=== PATIENT | male | born 1950 | race Caucasian/White ===

== ENCOUNTER → 2016-09-06 | Outpatient (CLI) | payer OTHER, BC | LOC: MMPC 10:00 | PROVIDERS: ATTEND Orthopaedic Surgery | DX: M17.12 Unilateral primary osteoarthritis, left knee (principal); M20.41 Other hammer toe(s) (acquired), right foot; M20.5X1 Other deformities of toe(s) (acquired), right foot; T84.293D Other mechanical complication of internal fixation device of bones of foot and toes, subsequent encounter | CPT/HCPCS: 20610 ×2; 99214; G0463; J0702; J7325 ==

== ENCOUNTER → 2016-11-04 | Outpatient (CLI) | payer OTHER, BC ==
--- NOTE | 2016-11-04 10:51 | DI ---
RIGHT FOOT, 11/04/2016 9:43 AM: Clinical History: Right foot pain. Previous Exam: 01/22/2015. 3 views are submitted. The patient is status post arthrodesis of the talocalcaneal joint and the firs t and second tarsometatarsal joints. The talocalcaneal arthrodesis is solid. There is fusion between the base of the first and second metatarsal bones and between the medial cuneiform and the first meta tarsal bone. There is still a joint space visible between the medial and intermediate cuneiform bones and between the intermediate cuneiform bone and the base of the second metatarsal bone. These findin gs at this arthrodesis site are unchanged from the previous exam. Readin. The talocalcaneal arthrodesis is solid. 2. The fusion between the first tarsal and first metatarsal bone is solid. The fusion is also solid between the base of the first and second metatarsal bones. The fusions between the medial and interme diate cuneiform bones and between the base of the second metatarsal bone and the intermediate cuneifo rm bone still have lucencies indicating delayed or nonunion.
== END ==
LOC: ORTHO 09:50
PROVIDERS: ATTEND Orthopaedic Surgery
DX: M79.671 Pain in right foot (principal); Z98.1 Arthrodesis status
CPT/HCPCS: 73630

== ENCOUNTER → 2016-11-11 | Outpatient (CLI) | payer OTHER, BC ==
[2016-11-11 09:40] LABS: CHOL/HDL RATIO 3.48 RATIO (0-4.0); LDL CHOLESTEROL,CALCULATED 67.8 mg/dL
== END ==
LOC: LAB 08:46
PROVIDERS: ATTEND Internal Medicine
DX: E03.9 Hypothyroidism, unspecified (principal); E78.5 Hyperlipidemia, unspecified; E22.9 Hyperfunction of pituitary gland, unspecified
CPT/HCPCS: 36415; 82247; 82465; 82550; 82977; 83718; 84075; 84146; 84443; 84450; 84460; 84478

== ENCOUNTER → 2016-12-14 | Outpatient (CLI) | payer OTHER, BC ==
--- NOTE | 2016-12-14 18:01 | DI ---
PA /LATERAL CHEST X-RAY, 12/14/2016 3:32 PM : Clinical History: Shortness of breath. Previous Exam: 03/08/2015. There is no acute soft tissue or bony abnormality. Heart size is normal. A coronary artery stent is p resent in the LAD. Lungs are clear. Mediastinal structures are normal. There are no pulmonary nodules . Reading: Normal chest x-ray. There is a coronary artery stent in the LAD indicating coronary artery disease.
--- NOTE | 2016-12-14 19:48 | DI ---
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 Previous Exam: 01/22/2015 and 07/30/2015. Comparison is made with a CT scan of the abdomen from 05/12/[address] scan from 07/30/2015. Upright AP and lateral and upright lateral flexion and extension views are submitted. The vertebral b odies are of normal height and size. There is disc space narrowing at every lumbar level. The patient is status post L3 and L4 laminectomies. Posterior alignment is normal and there is no instability wi th flexion and extension maneuvers. Arthritic changes are present in the apophyseal joints bilaterall y between L3-4 and L5-S1. The pedicles and remaining posterior elements are normal. Both SI joints ar e normal. On the AP projection, there is a circular density lateral to the right L2 and L3 transverse processe s. This density measures approximately 10 cm in diameter. This was present on the study from and also on the study of 01/22/2015 which was a supine exam. CT scans through the kidneys on 05/12/20 and on 07/30/2015 show normal appearance of the right kidney. This patient probably has a ptotic ri ght kidney were the right kidney long axis becomes parallel with the floor when the patient is in the upright position, thus making the kidney appear spherical. Readin. Status post L3 and L4 laminectomies with chronic disc space narrowing at every lumbar level and d egenerative arthritis bilaterally in the apophyseal joints between L3-4 and L5-S1. 2. There is no instability with flexion and extension maneuvers. 3. There is a presumed ptotic right kidney that accounts for the spherical 10 cm soft tissue mass la teral to the right L2 and L3 transverse processes.
== END ==
LOC: MOB RAD 15:37
PROVIDERS: ATTEND Physician Assistant
DX: M47.26 Other spondylosis with radiculopathy, lumbar region (principal); R06.02 Shortness of breath; M48.06 Spinal stenosis, lumbar region; I25.10 Atherosclerotic heart disease of native coronary artery without angina pectoris; Z95.818 Presence of other cardiac implants and grafts
CPT/HCPCS: 71020; 72110

== ENCOUNTER → 2016-12-17 | Outpatient (CLI) | payer OTHER, BC ==
--- NOTE | 2016-12-17 09:30 | DI ---
BILATERAL RENAL ULTRASOUND, 12/17/2016 8:48 AM: Clinical History: Flank pain. Previous Exam: None at this facility. Scans are performed through both kidneys in multiple projections. The right kidney measures 125 mm, a nd the left kidney measures 120 mm. There is a small 10-12 mm cyst in the left mid zone renal cortex but no solid lesion is seen. There is no solid or cystic mass in the right kidney. There is no hydron ephrosis or hydroureter. Perfusion to both kidneys is symmetric and normal. The bladder is virtually empty. Bilateral ureteral jets are visualized. Reading: Normal bilateral renal ultrasound. The bladder is virtually empty.
== END ==
LOC: US 08:35
PROVIDERS: ATTEND Physician Assistant
DX: R10.84 Generalized abdominal pain (principal)
CPT/HCPCS: 76770

== ENCOUNTER → 2016-12-17 | Outpatient (CLI) | payer OTHER, BC ==
--- NOTE | 2016-12-17 20:30 | DI ---
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 Previous Exam: 01/14/2010. Technique: Sagittal and axial T2 weighted; sagittal T1 weighted and T2 STIR; and axial PD. The vertebral bodies are of normal height and size. The patient is status post L3 and L4 laminectomie s. There is severe disc space narrowing at L2-3 and L3-4. The remaining lumbar disc spaces are of nor mal height. All lumbar disc spaces show desiccation change. The cord terminates at T12 and the conus medullaris is normal. The T11-12 through L1-2 disc spaces are normal. L2-3 has a very mild circumfere ntially bulging but not herniated disc without canal or neural foraminal stenosis. Hypertrophic degen erative changes are present in both apophyseal joints. L3-4 has a circumferentially bulging but not h erniated disc. There is no canal or significant neural foraminal stenosis. L4-5 has a circumferential ly bulging but not herniated disc with marked hypertrophic changes of the apophyseal joints and the l igamentum flavum. The cross-sectional area of the canal is at the lowest limits of normal. There is r ight neural foraminal stenosis. There is no significant left neural foraminal stenosis. L5-S1 has a m ild circumferentially bulging but not herniated disc without canal or neural foraminal stenosis. Readin. Status post L3 and L4 laminectomies. There is a bulging but not herniated disc with marked hypert rophic changes of the apophyseal joints and ligamentum flavum at L4-5. The cross-sectional area of th e canal at this level is at the lowest limits of normal and there is right neural foraminal stenosis without left neural foraminal stenosis. 2. L2-3, L3-4, and L5-S1 have bulging but not herniated discs without canal or neural foraminal sten osis. 3. The T11-12 through L1-2 disc spaces are normal.
== END ==
LOC: MRI 08:38
PROVIDERS: ATTEND Physician Assistant
DX: M47.26 Other spondylosis with radiculopathy, lumbar region (principal); M47.816 Spondylosis without myelopathy or radiculopathy, lumbar region; M47.817 Spondylosis without myelopathy or radiculopathy, lumbosacral region
CPT/HCPCS: 72148

== ENCOUNTER → 2016-12-27 | Outpatient (CLI) | payer OTHER, BC | LOC: MMPC 11:11 | PROVIDERS: ATTEND Internal Medicine | DX: M48.06 Spinal stenosis, lumbar region (principal); M20.5X1 Other deformities of toe(s) (acquired), right foot; Z95.5 Presence of coronary angioplasty implant and graft | CPT/HCPCS: 99214; G0463 ==

== ENCOUNTER 2017-01-06 09:07 | Day surgery (SDC) | payer OTHER, BC ==
[~2017-01-06 09:07] MED LIST: BUPivacaine Inj 0.25% PF - 10ml vial IV ONE; Iopamidol Inj 61% 50 ML VIAL IV ONE; TRIAMCINOLONE ACETONIDE 40 MG/1 ML IM ONE
[2017-01-06 10:07] VITALS: RESP 18
--- NOTE | 2017-01-06 10:45 | GEN.OPNOTE ---
Transforaminal CONCHA Procedure: Transforaminal Epidural Steriod Injection Procedure Code - Neurosurgery: 35313 : Lumbar Transforaminal Epidural Surgeon: Mitch Noonan -: Consent: Rationale for procedure, nature of procedure, possible risks and benefits were discussed with the patient. Risks including allergic reaction to medications, known effects of steroid medications including transient elevation in blood sugar with aggravation of pre-existing diabetes and remote risk of aseptic necrosis of the hip. Pain at the injection site, inadvertent dural puncture with resultant in CSF leak and headache possibly requiring further treatment. Infection or bleeding with potential risk of neurologic injury with weakness, paralysis or were all reviewed with the patient who wished to proceed. Anesthesia, sedation: No intravenous access or sedation was used. Physiologic monitoring of pulse and oxygen saturation was utilized. Procedure: The patient was placed prone on the operating room table, prepped with Chloraprep and sterilely draped. The skin was anesthetized with 1% Buffered Xylocaine. Under fluoroscopic control a 22-gauge Touhy needle was advanced into the area of the Kambin's triangle at the L4 level. Imaging confirmation of needle placement in the posterior, inferior and lateral quadrant of the foramen was obtained. Omnipaque was injected under real-time fluoroscopy demonstrating and epidurogram. Following this 2 ml of a mixture of kenalog 40mg/ml and 1% ropivacaine was injected. AP and lateral images of the final needle placement was obtained. The needle was removed and the patient returned to the post procedure recovery room where they were monitored for any side effects. Pain assessment: Preprocedure pain []/10, post procedure pain []/10. Discharge instructions: Patient was given a pain log to be filled out and returned. A delayed response to the steroids of 2-5 days was discussed. Dx; Lumbar Degenerative Disc Disease
[2017-01-06 10:51] VITALS: TEMP 97.7
== END 2017-01-06 10:48 | disposition home or self-care (01) ==
LOC: SDSC 09:07
PROVIDERS: ATTEND Pain Medicine Interventional Pain Medicine
DX: M51.36 Other intervertebral disc degeneration, lumbar region (principal)
CPT/HCPCS: 76000

== ENCOUNTER → 2017-01-21 | Outpatient (CLI) | payer OTHER, BC ==
--- NOTE | 2017-01-25 05:35 | DI ---
MRI THORACIC SPINE SCAN, 01/21/2017 8:50 AM: Clinical History: Thoracic spondylosis with radiculopathy. Previous Exam: None. Technique: Sagittal T1 and T2 weighted and STIR scans are supplemented with an axial T1 and T2 weight ed scans between T5 and T12. The vertebral bodies are of normal height and size. The disc spaces are of normal height and all disc spaces show desiccation change. Posteriorly on the left side at T9-10 and on the right side at T10-1 1 are prominent extradural projections of the ligamentum flavum into the canal without evidence of ca nal stenosis. The thoracic cord has a normal caliber, and between the T4-5 disc space to the T7-8 dis c space, the central canal is quite prominent. This can either represent focal dilatation of the cent ral canal or this represents a syrinx. No other canal dilatation is seen in the remainder of the cord . There are no intradural extramedullary lesions. Readin. There is a segment of the thoracic cord between T4-5 and T7-8 that has a prominent appearance of the central canal. This either represents focal dilatation or this may represent a very mild syrinx. No tumor mass within the cord is seen. 2. The vertebral bodies and disc spaces are normal. There is a left-sided posterior extradural lesio n consisting of hypertrophic change of the left ligamentum flavum at T9-10 with a similar right-sided extradural prominence of the ligamentum flavum at T10-11. These do not cause canal stenosis. There i s no intradural extramedullary lesion. Comment: The patient is scheduled to return for additional angled axial scans through the upper thora cic spine from T1-T5 to complete the study. A supplemental report will be issued upon successful comp letion of those additional axial scans.
== END ==
LOC: MRI 08:41
PROVIDERS: ATTEND Neurological Surgery
DX: M47.24 Other spondylosis with radiculopathy, thoracic region (principal)
CPT/HCPCS: 72146

== ENCOUNTER 2017-01-27 08:07 | Day surgery (SDC) | payer OTHER, BC ==
--- NOTE | 2017-01-27 08:57 | GEN.OPNOTE ---
Facet Injection Procedure: Facet Injection with Local Anesthetic and Steriod Procedure Code - Neurosurgery: 83719 : L/S Spine Facet/Med, 1st, 33024 : L/S Spine Facet/Med, 2nd Preoperative Diagnosis: Lumbar Spondylosis -: Consent: Rationale for procedure, nature of procedure, possible risks and benefits were discussed with the patient. Risks including allergic reaction to medications, known effects of steroid medications including transient elevations in blood sugar with aggravation of pre-existing diabetes and remote risk of aseptic necrosis of the hip. Infection or bleeding with potential risk of neurologic injury with weakness, paralysis or were all reviewed with the patient who wished to proceed. Anesthesia, sedation: No intravenous access or sedation was used. Physiologic monitoring of pulse and oxygen saturation was utilized. Procedure: The patient was placed prone on the operating room table, prepped with Chloroprep and sterilely draped. The skin was anesthetized with 1% Buffered Xylocaine. Under fluoroscopic control a 22-gauge needle was advanced L34 and L45 facet joint on the right. Omnipaque was injected under real-time fluoroscopy demonstrating an facet arthrogram. Following this .5 ml of a mixture of kenalog (40mg/ml) and Ropivacaine was injected into each joint. AP and lateral images of the final needle placement was obtained. The same was done on the left. The needle was removed and the patient returned to the post procedure recovery room where they were monitored for any side effects. Pain assessment: Preprocedure pain []/10, post procedure pain []/10. Discharge instructions: Patient was given a pain log to be filled out and returned. A delayed response to the steroids of 2-5 days was discussed.
[2017-01-27] MEDS ORDERED: TRIAMCINOLONE ACETONIDE 40 MG/1 ML IAC ONE (09:00)
[2017-01-27] MEDS ORDERED: Iopamidol Inj 61% 50 ML VIAL INTRATHEC ONE (09:00)
[2017-01-27] MEDS ORDERED: BUPivacaine Inj 0.25% PF - 10ml vial EPIDURAL ONE (09:00)
[2017-01-27 09:02] VITALS: RESP 20; TEMP 98.3
== END 2017-01-27 09:00 | disposition home or self-care (01) ==
LOC: SDSC 08:07
PROVIDERS: ATTEND Pain Medicine Interventional Pain Medicine
DX: M47.816 Spondylosis without myelopathy or radiculopathy, lumbar region (principal)
CPT/HCPCS: 76000

== ENCOUNTER → 2017-03-25 | Outpatient (CLI) | payer OTHER, BC ==
[2017-03-25 15:20] LABS: BLOOD UREA NITROGEN 16 mg/dL (7-22); BUN/CREATININE RATIO 22.85 (6-20); CALCIUM 9.4 mg/dL (8.7-10.7); EST GLOMERULAR FILTRATION > 60 (>60 ml/min/1.73m(2)); SERUM ALBUMIN 4.1 g/dL (3.5-4.8)
== END ==
LOC: LAB 14:19
PROVIDERS: ATTEND Internal Medicine
DX: E78.5 Hyperlipidemia, unspecified (principal); R73.09 Other abnormal glucose
CPT/HCPCS: 36415; 80053; 82550; 83036

== ENCOUNTER → 2017-03-31 | Outpatient (CLI) | payer OTHER, BC | LOC: MMPC 11:11 | PROVIDERS: ATTEND Internal Medicine | DX: M48.06 Spinal stenosis, lumbar region (principal); R73.9 Hyperglycemia, unspecified; I25.10 Atherosclerotic heart disease of native coronary artery without angina pectoris; E66.9 Obesity, unspecified; Z95.5 Presence of coronary angioplasty implant and graft; T84.293D Other mechanical complication of internal fixation device of bones of foot and toes, subsequent encounter | CPT/HCPCS: 99214; G0463 ==